=== PATIENT | female | born 1960 | race Caucasian/White ===

== ENCOUNTER 2019-06-05 07:36 | Day surgery (SDC) | payer OTHER ==
[2019-06-05] MEDS ORDERED: Midazolam 1 MG/ML 2 ML SDV ONE (08:57)
[2019-06-05] MEDS ORDERED: fentaNYL 100 MCG/2 ML SDV ONE (08:57)
[2019-06-05] MEDS ORDERED: Propofol 200 MG/20 ML SDV ONE ×2 (08:57→10:50)
[2019-06-05] MEDS ORDERED: Dextrose 5%-Lactated Ringers 1,000 ML IV SCH (09:00)
[2019-06-05 11:48] VITALS: PULSE 64
[2019-06-05 12:19] VITALS: BP 120/75
--- NOTE | 2019-06-06 13:06 | OR ---
DATE OF PROCEDURE: 06/05/2019 SURGEON: Cedrick Littlejohn MD PREOPERATIVE DIAGNOSIS: Indication for screening colonoscopy. POSTOPERATIVE DIAGNOSES: 1. Normal flexible colonoscopy. 2. Small thrombosed external hemorrhoid. OPERATIVE PROCEDURE: Flexible colonoscopy. ANESTHESIA: IV sedation. INDICATION FOR PROCEDURE: This is a 58-year-old female presenting for a screening colonoscopy. She is on a 5-year followup track as her father had colon carcinoma. Also, she has been complaining of some perianal discomfort recently, which eventually was identified as being associated with a small thrombosed external hemorrhoid. The plan is to proceed with a colonoscopy with biopsies and/or polypectomy as indicated. Potential risks including bleeding and perforation were discussed, and the patient wishes to proceed. DESCRIPTION OF PROCEDURE: The patient was taken to the operating room and placed in a left lateral decubitus position. IV sedation was administered. Digital perianal examination confirmed a roughly pea-sized thrombosed external hemorrhoid, might be accounting for the patient's above-mentioned discomfort. Scope was then passed into the rectum with retroflexion revealing uncomplicated hemorrhoidal columns otherwise. The scope was then eventually passed to the level of the cecum. The patient did have a fairly redundant colon, but we were able to reach the cecum eventually. To that level, there were no abnormalities, specifically, there were no areas of diverticular disease, no polyps, no other signs of neoplasia and no areas of colitis. The scope was then withdrawn, the above findings reconfirmed, and the procedure then concluded. The patient will be instructed to use Preparation H with hydrocortisone b.i.d. until the discomfort subsides in the anal area. If it persists over time, she is instructed that she can call and get a surgical followup appointment to treat the hemorrhoids if needed. Otherwise, the patient should have repeat colonoscopy in 5 years. Cedrick Littlejohn MD /[id number]
== END 2019-06-05 12:20 | disposition home or self-care (01) ==
LOC: JP.SDS 07:36
PROVIDERS: ATTEND Surgery
DX: Z12.11 Encounter for screening for malignant neoplasm of colon (principal); K64.5 Perianal venous thrombosis; Q43.8 Other specified congenital malformations of intestine; K21.9 Gastro-esophageal reflux disease without esophagitis; M19.90 Unspecified osteoarthritis, unspecified site; Z80.0 Family history of malignant neoplasm of digestive organs; Z88.2 Allergy status to sulfonamides; Z91.048 Other nonmedicinal substance allergy status
CPT/HCPCS: 45378; J2250; J2704; J3010; J7121

== ENCOUNTER 2025-02-25 08:26 | Day surgery (SDC) | payer MEDICARE, BC ==
[~2025-02-25 08:26] MED LIST: Midazolam 1 MG/ML 2 ML SDV ONE; Propofol 200 MG/20 ML SDV ONE; fentaNYL 50 MCG/ML SDV ONE
[2025-02-25] MEDS: Lactated Ringers 1,000 ML IV SCH (09:18)
[2025-02-25 11:46] VITALS: BP 125/58; PULSE 62
== END 2025-02-25 12:02 | disposition home or self-care (01) ==
LOC: JP.SDS 08:26
PROVIDERS: ATTEND Surgery
DX: Z12.11 Encounter for screening for malignant neoplasm of colon (principal); E78.00 Pure hypercholesterolemia, unspecified; I10 Essential (primary) hypertension; K21.9 Gastro-esophageal reflux disease without esophagitis; Z80.0 Family history of malignant neoplasm of digestive organs; Z98.2 Presence of cerebrospinal fluid drainage device; Z79.899 Other long term (current) drug therapy
CPT/HCPCS: G0105; J2704; J3010; J7120; 00812-QZ; J2250